=== PATIENT | female | born 1995 | race Caucasian/White ===

== ENCOUNTER → 2018-01-27 17:51 | Outpatient (CLI) | payer BC, SELFPAY | PROVIDERS: Visit Provider Family Medicine | DX: N39.0 Urinary tract infection, site not specified (principal) | CPT/HCPCS: 87086; 87088 ==

== ENCOUNTER → 2020-01-04 16:50 | Outpatient (CLI) | payer BC, SELFPAY ==
[2020-01-04 17:06] LABS: Bacteria 0 SEEN /hpf (None Seen); Mucous, Urine 0 SEEN /hpf (<or=2+); White Blood Cells 0 SEEN /hpf (0-5)
[2020-01-04 18:11] LABS: ALB/GLOB Ratio 1.3 RATIO (0.9-2.4); AST(SGOT) 18 U/L (15-37); Alanine Aminotransfer ALT/SGPT 25 U/L (13-56); Albumin, Serum 4.4 g/dL (3.2-5.0); Alkaline Phosphatase 47 U/L (45-117); Anion Gap 7 (5-15); BUN 13 mg/dL (7-18); BUN/Creat Ratio 18.7 RATIO (10-20); Calcium,Total 9.3 mg/dL (8.5-10.1); Chloride 101 mmol/L (98-107); EST Glomerular Filtration Rate 110 mL/min (>60); Est Glom Filt Rate - Afr Amer 133 mL/min (>60); Globulin 3.5 g/dL (2.2-4.2); Glucose 86 mg/dL (74-106); Potassium 3.6 mmol/L (3.5-5.1); Protein, Total 7.9 g/dL (6.4-8.2); Sodium Level 137 mmol/L (136-145)
[2020-01-04 18:32] LABS: Color, Urine Yellow (Yellow); Glucose, Dipstick Normal (Normal); Ketone-Dipstick Negative (Negative); Leukocyte Esterase-Dipstick Negative /ul (Negative); Nitrite-Dipstick Negative (Negative); Occult Blood-Urine 10 /ul (Negative); Protein-Dipstick Negative (Negative); Urine Bilirubin Dipstick Negative (Negative); Urine Clarity Sl. Cloudy (Clear); Urine Urobilinogen Normal (Normal); Urine pH 6.5 (5.0 - 8.0)
[2020-01-04 18:40] LABS: Red Blood Cells-Urine 0-5 SEEN /hpf (0-5); Squamous Epithelial Cells - UA 0-5 SEEN /hpf (5-10)
[2020-01-04 18:56] LABS: Hemoglobin A1c 5.2 % (4.2-6.3)
== END ==
PROVIDERS: PCP Family Medicine; Referring Provider Family Medicine; Visit Provider Family Medicine
DX: R63.1 Polydipsia (principal)
CPT/HCPCS: 36415; 80053; 81001; 83036

== ENCOUNTER → 2020-05-10 15:19 | Outpatient (CLI) | payer BC, SELFPAY ==
--- NOTE | 2020-05-10 15:26 | CT_ITS ---
STUDY: CT BRAIN WITHOUT CONTRAST REASON FOR EXAM: Female, 25 years old. PT STATED HEAD INJURY X 4 DAYS AGO, HEADACHE SINCE, REFUSED TO REMOVE JEWELRY RADIATION DOSAGE (If Supplied By Facility): CTDIvol = ( 44.99 ) mGy, DLP = ( 745.49 ) mGycm TECHNIQUE: Transaxial CT imaging of the brain was performed without administration of intravenous contrast material. Individualized dose optimization techniques were used for this CT. COMPARISON: No relevant priors. FINDINGS: Normal soft tissue structures. Normal calvarium. Normal size ventricles and extra-axial spaces for the patient''s age. Normal white matter tracts of the cerebral hemispheres. Normal basal ganglia and thalami. Normal brainstem. Normal cerebellum. There is no intracranial hemorrhage. There are no findings of an acute ischemic infarction. Normal visualized paranasal sinuses. CT/Brain/Head without Contrast IMPRESSION: Normal unenhanced CT scan of the brain. Electronically Signed: Brian Hernandez MD at 16:08 EDT Tel , Service support ,
--- NOTE | 2020-05-10 15:27 | CT_ITS ---
STUDY: CT CERVICAL SPINE WITHOUT CONTRAST REASON FOR EXAM: Female, 25 years old. PT STATED HEAD INJURY X 4 DAYS AGO, HEADACHE SINCE, REFUSED TO REMOVE JEWELRY RADIATION DOSAGE (If Supplied By Facility): CTDIvol = ( 23.15 ) mGy, DLP = ( 565.15 ) mGycm TECHNIQUE: High resolution transaxial imaging was performed without contrast material. Sagittal and coronal images were reconstructed. Individualized dose optimization techniques were used for this CT. COMPARISON: None FINDINGS: Normal craniovertebral junction. Normal anterior atlantoaxial articulation. Normal odontoid process. There is straightening of the normal cervical lordosis. Normal vertebral bodies and posterior osseous elements. C2-3: Normal endplates. Normal disc height and morphology. Normal central canal and intervertebral neuroforamina. C3-4: Normal endplates. Normal disc height and morphology. Normal central canal and intervertebral neuroforamina. C4-5: Normal endplates. Normal disc height and morphology. Normal central canal and intervertebral neuroforamina. C5-6: Normal endplates. Normal disc height and morphology. Normal central canal and intervertebral neuroforamina. C6-7: Normal endplates. Normal disc height and morphology. Normal central canal and intervertebral neuroforamina. C7-T1: Normal endplates. Normal disc height and morphology. Normal central canal and intervertebral neuroforamina. Normal visualized soft tissue structures. CT/Spine Cervical without Contras IMPRESSION: No fracture or subluxation. Straightening of the normal lordotic curvature possibly from muscular spasm. Electronically Signed: Brian Hernandez MD at 16:07 EDT Tel , Service support ,
== END ==
PROVIDERS: PCP Family Medicine; Referring Provider Family Medicine; Visit Provider Family Medicine
DX: S09.90XA Unspecified injury of head, initial encounter (principal)
CPT/HCPCS: 70450; 72125

== ENCOUNTER → 2020-07-06 16:12 | Outpatient (CLI) | payer BC, SELFPAY ==
[2017-08-29 20:15] VITALS: BMI 26.6
[2020-07-11 14:09] LABS: Chlamydia By Nucleic Acid AMP Negative (Negative)
[2020-07-11 15:00] LABS: Gonococcus By Nucleic Acid AMP Negative (Negative); HPV Reflexed? NOT INDICATED
== END ==
PROVIDERS: PCP Family Medicine; Referring Provider Family Medicine; Visit Provider Family Medicine
DX: Z01.419 Encounter for gynecological examination (general) (routine) without abnormal findings (principal)
CPT/HCPCS: 87491; 87591; 88175; G0145

== ENCOUNTER → 2021-04-24 16:48 | Outpatient (CLI) | payer BC, SELFPAY ==
[2021-04-24 17:47] LABS: Absolute Lymphocyte Count 3.13 X10^3/uL (0.83-4.51); Absolute Neutrophil Count 4.2 X10^3/uL (2.0-7.7); Basophil# 0.03 X10^3/uL; Basophil% 0.4 % (0-1); Eosinophil# 0.04 X10^3/uL; Eosinophils% 0.5 % (0-5); Hematocrit 38.3 % (37-47); Hemoglobin 12.5 g/dL (12.0-15.0); Lymphocyte # 3.13 X10^3/ul (0.83-4.51); Lymphocyte % 38.4 % (19-41); Mean Corp Hgb Conc 32.6 g/dL (32-36); Mean Corpuscular Volume 91.8 fL (81-99); Mean Platelet Vol. 9.9 fl (6.2-12.0); Monocyte# 0.71 X10^3/uL; Monocyte% 8.7 % (0-10); NRBC Flagged by Analyzer 0 % (0-5); Neutrophil # 4.22 X10^3/uL (2.7-7.7); Neutrophil % 51.6 % (47-70); Platelet Count 309 K/mm3 (150-450); RBC Distribution Width CV 12.2 % (11.6-14.6); RBC Distribution Width SD 41.1 fl (35.1-43.9); Red Blood Count 4.17 M/mm3 (4.2-5.4); White Blood Count 8.2 K/mm3 (4.4-11.0)
[2021-04-24 18:16] LABS: AST(SGOT) 18 U/L (15-37); Alanine Aminotransfer ALT/SGPT 27 U/L (13-56); Albumin, Serum 3.8 g/dL (3.2-5.0); Alkaline Phosphatase 28 U/L (45-117); Anion Gap 6 (5-15); BUN 14 mg/dL (7-18); BUN/Creat Ratio 17.8 RATIO (10-20); Calcium,Total 9.6 mg/dL (8.5-10.1); Chloride 104 mmol/L (98-107); Creatinine, Serum 0.79 mg/dL (0.55-1.02); EST Glomerular Filtration Rate 95 mL/min (>60); Est Glom Filt Rate - Afr Amer 115 mL/min (>60); Globulin 3.9 g/dL (2.2-4.2); Glucose 87 mg/dL (74-106); Potassium 3.6 mmol/L (3.5-5.1); Protein, Total 7.7 g/dL (6.4-8.2); Sodium Level 138 mmol/L (136-145)
== END ==
PROVIDERS: PCP Family Medicine; Referring Provider Family Medicine; Visit Provider Family Medicine
DX: R10.11 Right upper quadrant pain (principal)
CPT/HCPCS: 36415; 80053; 85025

== ENCOUNTER → 2021-04-25 09:26 | Outpatient (CLI) | payer BC, SELFPAY ==
--- NOTE | 2021-04-25 09:30 | US_ITS ---
STUDY: ABDOMINAL ULTRASOUND - RIGHT UPPER QUADRANT REASON FOR VISIT: Female, 26 years old RUQ PAIN TECHNIQUE: Ultrasound evaluation of the right upper quadrant was performed with real-time and static macdonald-scale imaging. TECHNICAL QUALITY: Adequate. COMPARISON: None. FINDINGS: Liver: The liver is slightly enlarged and measures 18.3 cm. There is normal echogenicity of the liver. The bile ducts are within normal limits. There is hepatic color flow. The direction of portal flow is hepatopetal. There is a 1.8 cm x 1.6 cm x 1.6 cm echogenic nodule in the right lobe suggestive of a small hemangioma. This is adjacent to the right hemidiaphragm. Gallbladder: Normal distended gallbladder. The gallbladder wall measures 1.5 mm. There is a negative sonographic Pabon''s sign. There is no pericholecystic fluid. There are no gallstones. Sludge is seen in the gallbladder lumen. Common Bile Duct (C.B.D.): The common bile duct measures 2.7 mm. Pancreas: Normal size of the head, body and tail of the pancreas. There is increased echogenicity of the pancreas. There is no demonstrated pancreatic mass or cyst. Right Kidney: Normal size of the right kidney. The right kidney measures 10.5 cm x 5.5 cm x 4.6 cm. Normal renal cortex. The right cortex measures 1.2 cm. There is no demonstrated renal mass or cyst. There is no right hydronephrosis. US/Gallbladder IMPRESSION: Mild hepatomegaly. Findings suggest right 1.8 cm x 1.6 cm x 1.6 cm hemangioma in the dome of the right lobe of the liver. Small amount of sludge is seen in the gallbladder lumen. Electronically Signed: Twin Riggs MD at 10:48 EDT , Service support ,
== END ==
PROVIDERS: PCP Family Medicine; Referring Provider Family Medicine; Visit Provider Family Medicine
DX: R10.11 Right upper quadrant pain (principal)
CPT/HCPCS: 76705

== ENCOUNTER → 2021-05-08 09:19 | Outpatient (CLI) | payer BC, SELFPAY ==
--- NOTE | 2021-05-08 09:22 | NM_ITS ---
CLINICAL: 26-year-old female with reported history of right upper quadrant abdominal pain. RADIONUCLIDE HEPATOBILIARY SCINTIGRAPHY COMPARISON: Gallbladder ultrasound report 04/25/2021 FINDINGS: Following the intravenous administration of 5.5 mCi of 99m Tc Mebrofenin, hepatobiliary images reveal: 1. Relatively prompt and homogeneous radiopharmaceutical concentration is noted by a normal sized liver. No parenchymal defects are identified. 2. Gallbladder activity is identified at 10 minutes post radiopharmaceutical administration. 3. Small intestinal tract is not visualized during 60 minutes of pre-fatty meal sequential image acquisition. Small bowel is observed following consumption of the fatty meal. 4. Washout of the radiopharmaceutical by the hepatic parenchyma appears qualitatively normal. The patient was administered a fatty meal (8 ounces BOOST-30 grams fat). The post fatty meal consumption gallbladder ejection fraction calculated at 19 minutes was noted to be 51.0 % (normal greater than 30%). NM/Hepatobilliary Img w/Pharm Int IMPRESSION: 1. NORMAL 99m Tc Mebrofenin hepatobiliary imaging examination with fatty meal ingestion. A. A gallbladder ejection fraction calculated to be greater than 30% following the administration of a consumed fatty meal makes the probability of functional hepatobiliary disease (gallbladder and/or sphincter of Oddi dyskinesia) and/or organic hepatobiliary disease (chronic acalculous cholecystitis and/or cystic duct syndrome) to be low. (Zbigniew and Farrukh, J Nucl Med 43: 1603, 2002). Electronically Signed: Brian Whyte DO at 22:52 EDT Tel , Service support ,
== END ==
PROVIDERS: PCP Family Medicine; Referring Provider Family Medicine; Visit Provider Family Medicine
DX: K82.8 Other specified diseases of gallbladder (principal)
CPT/HCPCS: 78227; A9537

== ENCOUNTER → 2021-05-16 08:47 | Outpatient (CLI) | payer BC, SELFPAY ==
[2021-05-16 09:02] LABS: Bacteria 0 SEEN /hpf (None Seen); Mucous, Urine 0 SEEN /hpf (<or=2+)
[2021-05-16 09:05] LABS: Color, Urine Yellow (Yellow); Glucose, Dipstick Normal (Normal); Ketone-Dipstick Negative (Negative); Leukocyte Esterase-Dipstick 500 /ul (Negative); Nitrite-Dipstick Negative (Negative); Occult Blood-Urine 50 /ul (Negative); Protein-Dipstick Negative (Negative); Urine Bilirubin Dipstick Negative (Negative); Urine Clarity Sl. Cloudy (Clear); Urine Urobilinogen Normal (Normal); Urine pH 6.5 (5.0 - 8.0)
[2021-05-16 09:15] LABS: Red Blood Cells-Urine 0-5 SEEN /hpf (0-5); Squamous Epithelial Cells - UA 0-5 SEEN /hpf (5-10); White Blood Cells 25-50 SEEN /hpf (0-5)
== END ==
PROVIDERS: PCP Family Medicine; Referring Provider Surgery; Visit Provider Surgery
DX: R10.9 Unspecified abdominal pain (principal); R82.90 Unspecified abnormal findings in urine
CPT/HCPCS: 81001; 87086

== ENCOUNTER 2021-05-24 08:17 | Day surgery (SDC) | payer BC, SELFPAY ==
--- NOTE | 2021-05-24 | EGD_PTH ---
PATIENT: AHSAN CODY LOC: EN U#:[id number] AGE/SX: 26/F ROOM: RE05/24/[address]: Dr. Joel Campos MD : 1995 BED: DIS: 05/24/2021 SPEC #: [id number] RECD: 05/24/21 13:07 STATUS: SHAKIRA MALCOLM #: [id number] MICKY: 05/24/21 00:[address]: Joel Campos DEPT: SURGICAL PATHOLOGY RECD BY: Clark Ghotra ENTERED: 05/24/21 13:07 SP TYPE: EGD BIOPSY OT DR: Dr. Sanjiv Hernandez MD Tissues: A - Duodenum, NOS B - Gastric mucous membrane C - Esophageal mucous membrane D - Esophageal mucous membrane Procedures: Special Stain Group II Surgery Specimen Level IV Alcian Blue/PAS (control) HEADER OPERATION: EGD ([facility] [place]) PRE-OP DIAGNOSIS: Epigastric abdominal pain TISSUE SUBMITTED: A ? Duodenum biopsy, B ? Antrum biopsy for histo and H. pylori, C ? Distal esophagus biopsy, D ? Mid esophagus biopsy MICROSCOPIC DIAGNOSIS A. Duodenum, biopsy: A fragment of duodenal mucosa, no pathologic diagnosis. B. Antrum, biopsy: Mild gastritis. Focal intestinal metaplasia. See microscopic description and comment. C. Distal esophagus, biopsy: Fragments of gastroesophageal mucosa with mild chronic inflammation. Intestinal metaplasia (goblet cell metaplasia) not identified. See comment. D. Mid esophagus, biopsy: A fragment of squamous epithelium, no pathologic diagnosis. SJ:jordan 05/27/2021 COMMENT B. The results of immunohistochemistry for Helicobacter pylori will be reported separately ([id number]). B & C. Alcian blue/PAS stain with matched control is used in the evaluation of the specimen. MICROSCOPIC DESCRIPTION Slides are reviewed. B. The specimen shows fragments of gastric mucosa with chronic inflammatory cell infiltrates in the lamina propria consisting of lymphocytes and plasma cells, consistent with mild chronic gastritis. Intestinal metaplasia is also noted. GROSS DESCRIPTION A - Received in fixative is one container labeled with the patient's name and designated duodenum biopsy. The specimen consists of one irregular fragment of light simpson soft tissue that measures 0.4 x 0.3 x 0.1 cm. The specimen is totally submitted in one cassette. B - Received in fixative is one container labeled with the patient's name and designated antrum biopsy. The specimen consists of one irregular fragment of light simpson soft tissue that measures 0.3 x 0.3 x 0.1 cm. The specimen is totally submitted in one cassette. C - Received in fixative is one container labeled with the patient's name and designated distal esophagus biopsy. The specimen consists of two irregular fragments of light simpson soft tissue that in aggregate measure 0.6 x 0.3 x 0.1 cm. The specimen is totally submitted in one cassette. D - Received in fixative is one container labeled with the patient's name and designated mid esophagus biopsy. The specimen consists of one irregular fragment of light simpson soft tissue that measures 0.5 x 0.2 x 0.1 cm. The specimen is totally submitted in one cassette. / SJ:rg 05/24/21 TC:3 CPT: 46195 x4, 32640 x2
[2021-05-24 08:45] VITALS: BP 117/72; PULSE 65; RESP 18; TEMP 35.9; O2SAT 100; BMI 28.1
[2021-05-24] MEDS: Lactated Ringers 1,000 ML 100 ML IV (08:45)
[2021-05-24 08:48] LABS: Internal QC Validated? YES +Cl - CLEAR BKGD; Pregnancy, Urine Negative Negative
--- NOTE | 2021-05-24 09:08 | HP.PCM_ITS ---
History and Physical Date of Admission: 05/24/21 Intake Visit Reasons: GALLBLADDER, RUQ PAIN Chief Complaint: ruq pain Clerk Carrier Required: No Is patient in pain?: Yes (ruq) Allergies No Known Allergies Allergy (Verified 05/16/21 08:33) Medications norethindrone-ethin estradiol [Nortrel 1-35 28 Tablet] 1 tab PO DAILY 08/29/17 [History Confirmed 05/16/21] spironolactone [Aldactone] 100 mg PO DAILY 08/29/17 [History Confirmed 05/16/21] ondansetron HCl 4 mg tablet tablet PO 05/16/21 [History Confirmed 05/16/21] propranolol 80 mg capsule,24 hr,extended release ea PO 05/16/21 [History Confirmed 05/16/21] rimegepant 75 mg disintegrating tablet tablet PO 05/16/21 [History Confirmed 05/16/21] PFSH Medical History (Updated 05/16/21 @ 09:[address] Joel Campos MD) Abdominal pain Migraine Surgical History (Updated 05/16/21 @ 08:31 by Fartun Ramirez) S/P wisdom tooth extraction Social History Smoking Status: Never smoker HPI HPI HPI: AHSAN MARKS, is a 26 F who presents to the office today for surgical consultation regarding abdominal pain. The patient is referred by Dr Sanjiv Hernandez a written copy of my surgical consult and recommendations will return to him. As of April 24, 2021 she had a white blood cell count of 8.2 with hemoglobin 12.5 hematocrit 38.3 and a platelet count of 309,000. Liver function test at that time were normal. On April 25, 2021 she had a gallbladder ultrasound showing mild hepatomegaly. I suspected 1.8 x 1.6 x 1.6 cm hemangioma in the dome of the right lobe of the liver. Small amount of sludge in the gallbladder. Subsequently on May 08, 2021 the patient had a hepatobiliary scan. This showed prompt filling by the liver. Gallbladder was identified at 10 minutes. The small intestine was not visualized during the 60-minute prefatty meal. The small bowel was visualized after the fatty meal. Ejection fraction of the gallbladder was 51% felt to be normal. By report the patient's been having trouble with migraines. She has been on various medications. For the past 4 to 6 weeks she has been having trouble with epigastric right upper quadrant pain and now right flank pain. She denies any history of shingles. She has had no rash. She has not had a recent urinalysis. Does not really describe any dysuria. As of April 24, 2021 laboratory demonstrated normal liver function tests. She also had a normal white blood cell count of 8.2 with hemoglobin 12.5 hematocrit 38.3 and a platelet count of 309,000. She states that she took a home allergy test that suggested age intolerance and moderate wheat intolerance and mild gluten insufficiency. She has been on a course of omeprazole therapy. The first week she did noted no difference. The subsequent couple weeks some improvement. She states that the discomfort is most notable first thing in the morning with an empty stomach. With some of her migraine medication changes she had a 10 pound weight loss. She has possibly had an additional 5 pound weight loss. She notes no change in bowel habit. ROS General General: Yes weight change, appetite and fatigue; No colon cancer, breast cancer or weakness HEENT HEENT: No difficulty swallowing, eye injury, eye surgery, swollen glands or hoarseness Endo Endocrine: No thyroid disease, diabetes mellitus, thyroid cancer, Hair loss, heat intolerance or cold intolerance Skin Skin: No rash or changing moles Breast Breast: No left breast lump, right breast lump, nipple discharge, breast pain, abnormal mammogram, abnormal US or breast enlargement Musc Musculoskeletal: No back problems, arthritis, rheumatoid arthritis, gout or joint pain Cardio Cardiovascular: No murmur, pacemaker, heart disease, atrial fibrillation, high blood pressure, heart attack, heart stent, palpitations, shortness of breat with exertion or chest pain Psych Psychiatric: Yes anxiety; No depression or hearing voices Resp Respiratory: No shortness of breath, No sleep apnea, No cough, No COPD, No asthma, No emphysema and No wheezing Gastro Gastrointestinal: Yes abdominal pain, No nausea or vomiting, Yes diarrhea, Yes constipation, No blood in stool, Yes acid reflux, No hemorrhoids, No ulcers, Yes gallbladder problem and No black,tarry stools Ramy Hematologic: No blood thinners, No blood disorders, No bleeding, No anemia and No blood clots Neuro Neurologic: No system reviewed and no additional complaints, except as documented, No as per HPI, No abnormal gait, No abnormal hearing, No abnormal movements, No abnormal speech, No behavioral changes, No burning sensations, No confusion, No convulsions, No disequilibrium, No dizziness, No localized weakness, No frequent falls, Yes headache(s), No lack of coordination, No loss of vision, No memory loss, No numbness, No other visual disturbances, No radicular pain, No restless legs, No sensory deficit, No syncope, No tingling, No tremor(s), No weakness and No other Exam Const General: cooperative, healthy appearing, comfortable and no acute distress Nutritional Appearance: average body habitus Orientation: alert and awake [facility] Head: normal to inspection Eyes General: appearance normal, both eyes and all related structures Neck Neck: normal visual inspection Chest Other: No significant CVA percussion tenderness Resp Effort & Inspection: normal respiratory effort Auscultation: clear to auscultation bilaterally Cardio Rate: regular rate Rhythm: regular rhythm GI Palpation: soft and no hepatosplenomegaly Auscultation: normal bowel sounds Other: No focal tenderness. No mass. No rebound. Musc Cervical Spine: normal cervical lordosis Skin Other: Back and right flank carefully inspected. No evidence for any rash. Neuro General: patient alert and patient awake Cognition: normal cognition Extrem General: no calf tenderness Psych Appearance: grossly normal COVID (Procedure Consent) Procedure Criteria Procedure Criteria: Yes Elective The surgeon/proceduralist and patient have discussed in detail the risk of exposure to and/or potential harm posed by the COVID-19 virus with having a surgery/procedure at this time versus the risk of delaying the surgery/procedure. It is not possible to know either the risk of delaying the surgery or procedure or chance of getting an infection with perfect accuracy, but a joint decision was made between the patient and the surgeon/proceduralist to proceed at this time with the scheduled surgery/procedure as indicated on the consent form. Assessment and Plan Assessment and Plan (1) Epigastric abdominal pain: Status: Acute Plan - Dr. Joel Campos MD: 26-year-old female with epigastric right upper quadrant right flank pain. Etiology not clear. Gallbladder evaluation with liver function tests and ultrasound and hepatobiliary scan unremarkable. I recommend a urinalysis. She is describing some right flank discomfort. I recommend a esophagogastroduodenoscopy with possible biopsy. Very careful inspection of the duodenum stomach and esophagus pursued with appropriate biopsies as noted. She has had an opportunity to ask and have questions answered. If the upper endoscopy is not remarkable then I am not sure I will have a surgical resolution to her problem. The patient and her mother have had an opportunity to ask and have questions answered. I appreciate the opportunity of assisting with her surgical care Copy: Dr Sanjiv Campos M.D., F.A.C.S. Plan Details Other Orders: Orders: Urinalysis, Complete Today R10.9 I have re-examined the patient. There are no clinical changes since date of exam. Joel Campos M.D., F.A.C.S.
--- NOTE | 2021-05-24 09:30 | IMM_PTH ---
PATIENT: AHSAN CODY LOC: EN U#:[id number] AGE/SX: 26/F ROOM: RE05/24/[address]: Dr. Joel Campos MD : 1995 BED: DIS: 05/24/2021 SPEC #: [id number] RECD: 05/24/21 13:45 STATUS: SHAKIRA REChato #: [id number] MICKY: 05/24/21 09:[address]: Joel Campos DEPT: IMMUNOHISTOCHEMISTRY RECD BY: Sherice Kothari ENTERED: 05/24/21 13:45 SP TYPE: IMMUNO OTHR DR: Dr. Sanjiv Hernandez MD Tissues: B - Stomach, NOS Procedures: H Pylori (initial) PHYSICIAN & INSTITUTION [place] [address] SPECIMEN INFORMATION: Tissue Source: B ? Antrum biopsy Clinical Info: Epigastric abdominal pain Specimen Number: [id number] CPT code: 60523 METHODOLOGY: Deparaffinized sections of prefer/formalin-fixed tissue or PAP/DQ stained slides are incubated with monoclonal/polyclonal antibodies/oligonucleotide probes. Localization is made via biotin free immunoperoxidase method. Appropriate controls are performed and reacted as expected. Results on target cell population are indicated in the following table: RESULTS: ANTIBODY / CLONE RESULT Block B H Pylori (polyclonal) negative These tests were developed and their performance characteristics determined by [facility]. They may not have been cleared or approved by the U.S. Food and Drug Administration. The FDA has determined that such clearance or approval is not necessary. INTERPRETATION: B. Antrum biopsy: Negative for Helicobacter pylori organisms. SJ:jordan 05/27/2021
--- NOTE | 2021-05-24 10:17 | OP.EGD_ITS ---
Patient Name: Mihaela Katz Procedure Date: 05/24/2021 9:58 AM Date of : 1995 Age: 26 Procedure: Upper GI endoscopy Indications: Epigastric abdominal pain Providers: Joel Campos MD Referring MD: Joel Campos MD Medicines: See the Anesthesia note for documentation of the administered medications Complications: No immediate complications. Procedure: Pre-Anesthesia Assessment: - Prior to the procedure, a History and Physical was performed, and patient medications and allergies were reviewed. The patient's tolerance of previous anesthesia was also reviewed. The risks and benefits of the procedure and the sedation options and risks were discussed with the patient. All questions were answered, and informed consent was obtained. Prior Anticoagulants: The patient has taken no previous anticoagulant or antiplatelet agents. ASA Grade Assessment: I - A normal, healthy patient. After reviewing the risks and benefits, the patient was deemed in satisfactory condition to undergo the procedure. After obtaining informed consent, the endoscope was passed under direct vision. Throughout the procedure, the patient's blood pressure, pulse, and oxygen saturations were monitored continuously. The gastroscope was introduced through the mouth, and advanced to the second part of duodenum. The upper GI endoscopy was accomplished without difficulty. The patient tolerated the procedure well. Scope In: 10:04:18 AM Scope Out: 10:10:12 AM Total Procedure Duration Time 0 hours 5 minutes 54 seconds Findings: LA Grade A (one or more mucosal breaks less than 5 mm, not extending between tops of 2 mucosal folds) esophagitis with no bleeding was found 40 cm from the incisors. Biopsies were taken with a cold forceps for histology. The middle third of the esophagus was normal. Biopsies were taken with a cold forceps for histology. A single localized, non-bleeding erosion was found in the gastric antrum. There were no stigmata of recent bleeding. Biopsies were taken with a cold forceps for histology. The examined duodenum was normal. Biopsies were taken with a cold forceps for histology. A small hiatal hernia was present. The Z-line was irregular and was found 40 cm from the incisors. Impression: - LA Grade A reflux esophagitis. Biopsied. - Normal middle third of esophagus. Biopsied. - Non-bleeding erosive gastropathy. Biopsied. - Normal examined duodenum. Biopsied. Recommendation: - Discharge patient to home. - Resume previous diet. - Continue present medications. - Telephone my office for pathology results in 1 week. Procedure Code(s): --- Professional --- 62814, Esophagogastroduodenoscopy, flexible, transoral; with biopsy, single or multiple Diagnosis Code(s): --- Professional --- K21.0, Gastro-esophageal reflux disease with esophagitis K31.89, Other diseases of stomach and duodenum R10.13, Epigastric pain CPT copyright 2017 [employer]. All rights reserved. The codes documented in this report are preliminary and upon him assistant review may be revised to meet current compliance requirements. Joel Campos MD 05/24/2021 10:16:17 AM This report has been signed electronically. Number of Addenda: 0 Note Initiated On: 05/24/2021 9:58 AM
--- NOTE | 2021-05-24 10:17 | OP.CCLET_ITS ---
05/24/2021 Sanjiv Hernandez [address] [place] [address] Re : Upper GI endoscopy procedure for Mihaela Katz Dear Dr. Hernandez This procedure was performed on Monday, May 24, 2021. My impressions and recommendations are as follows: Impressions : - LA Grade A reflux esophagitis. Biopsied. - Normal middle third of esophagus. Biopsied. - Non-bleeding erosive gastropathy. Biopsied. - Normal examined duodenum. Biopsied. Recommendations : - Discharge patient to home. - Resume previous diet. - Continue present medications. - Telephone my office for pathology results in 1 week. My findings are described in the full procedure note, which is enclosed. If I can be of further assistance, please feel free to contact me at Doctor phone number(s): Work: . Sincerely, Joel Campos MD 05/24/2021 10:16:17 AM This report has been signed electronically.
[2021-05-24 10:20] VITALS: BP 110/75; BP 117/72; PULSE 65; RESP 16; O2SAT 100
[2021-05-24 10:21] VITALS: BP 115/55; BP 117/72; PULSE 67; RESP 16; TEMP 36.2; O2SAT 100
[2021-05-24 10:25] VITALS: BP 109/78; BP 117/72; PULSE 69; RESP 16; O2SAT 100
[2021-05-24 10:32] VITALS: BP 113/71; BP 117/72; PULSE 62; RESP 16; TEMP 36.2; O2SAT 100
[2021-05-24 10:56] VITALS: BP 117/72
== END 2021-05-24 11:03 ==
LOC: EN 08:17 → AC 08:18
PROVIDERS: Anesthesiology; PCP Family Medicine; Referring Provider Surgery; Visit Provider Surgery
PROC: 0DJ08ZZ Inspection of Upper Intestinal Tract, Via Natural or Artificial Opening Endoscopic (ICD-10-PCS; CPT 43235; principal; 2021-05-24 09:25)
DX: K29.70 Gastritis, unspecified, without bleeding (principal); K44.9 Diaphragmatic hernia without obstruction or gangrene; K22.70 Barrett's esophagus without dysplasia; K21.00 Gastro-esophageal reflux disease with esophagitis, without bleeding; K31.89 Other diseases of stomach and duodenum; R63.4 Abnormal weight loss; G43.909 Migraine, unspecified, not intractable, without status migrainosus; F41.9 Anxiety disorder, unspecified; Z68.28 Body mass index [BMI] 28.0-28.9, adult; Z79.899 Other long term (current) drug therapy
CPT/HCPCS: 43239; 81025; 87426; 88305; 88313; 88342; C9803; J7120

== ENCOUNTER → 2022-01-14 | Outpatient (CLI) | payer BC, SELFPAY ==
[2022-01-14 15:21] LABS: Absolute Lymphocyte Count 3.49 X10^3/uL (0.83-4.51); Absolute Neutrophil Count 3.5 X10^3/uL (2.0-7.7); Basophil# 0.03 X10^3/uL; Basophil% 0.4 % (0-1); Eosinophil# 0.05 X10^3/uL; Eosinophils% 0.6 % (0-5); Hematocrit 37.8 % (37-47); Hemoglobin 12.6 g/dL (12.0-15.0); Lymphocyte # 3.49 X10^3/ul (0.83-4.51); Lymphocyte % 44.4 % (19-41); Mean Corp Hgb Conc 33.3 g/dL (32-36); Mean Corpuscular Hgb 29.8 pg (27.0-32.0); Mean Corpuscular Volume 89.4 fL (81-99); Mean Platelet Vol. 9.2 fl (6.2-12.0); Monocyte# 0.73 X10^3/uL; Monocyte% 9.3 % (0-10); NRBC Flagged by Analyzer 0 % (0-5); Neutrophil # 3.52 X10^3/uL (2.7-7.7); Neutrophil % 44.8 % (47-70); Platelet Count 356 K/mm3 (150-450); RBC Distribution Width CV 12.1 % (11.6-14.6); RBC Distribution Width SD 39.5 fl (35.1-43.9); Red Blood Count 4.23 M/mm3 (4.2-5.4); White Blood Count 7.9 K/mm3 (4.4-11.0)
[2022-01-14 16:18] LABS: Vitamin B12 1299 pg/mL (211-911); Vitamin D,25 Hydroxy 27.2 ng/mL
[2022-01-14 16:27] LABS: ALB/GLOB Ratio 1.2 RATIO (0.9-2.4); AST(SGOT) 23 U/L (15-37); Alanine Aminotransfer ALT/SGPT 37 U/L (13-56); Albumin, Serum 4.3 g/dL (3.2-5.0); Alkaline Phosphatase 46 U/L (45-117); Anion Gap 6 (5-15); BUN 14 mg/dL (7-18); BUN/Creat Ratio 16.7 RATIO (10-20); Calcium,Total 9.3 mg/dL (8.5-10.1); Chloride 102 mmol/L (98-107); Creatinine, Serum 0.84 mg/dL (0.55-1.02); EST Glomerular Filtration Rate 87 mL/min (>60); Est Glom Filt Rate - Afr Amer 106 mL/min (>60); Globulin 3.6 g/dL (2.2-4.2); Glucose 81 mg/dL (74-106); Potassium 3.8 mmol/L (3.5-5.1); Protein, Total 7.9 g/dL (6.4-8.2); Sodium Level 138 mmol/L (136-145); T4 Free Direct 0.92 ng/dL (0.76-1.46); Thyroid Stim Hormone (TSH) 1.89 uIU/mL (0.358-3.74)
== END | disposition home or self-care (01) ==
LOC: MFPLAB 14:19
PROVIDERS: PCP Family Medicine; Visit Provider Family Medicine
DX: Z01.419 Encounter for gynecological examination (general) (routine) without abnormal findings (principal); R53.83 Other fatigue; R68.89 Other general symptoms and signs
CPT/HCPCS: 36415; 80053; 82306; 82607; 84439; 84443; 85025

== ENCOUNTER → 2022-02-11 | Outpatient (CLI) | payer BC, SELFPAY | END | disposition home or self-care (01) | LOC: LABSPEC 12:08 | PROVIDERS: PCP Family Medicine; Referring Provider Family Medicine; Visit Provider Nurse Practitioner Family | DX: N39.0 Urinary tract infection, site not specified (principal) | CPT/HCPCS: 87086 ==

== ENCOUNTER → 2022-06-13 | Outpatient (CLI) | payer BC, SELFPAY ==
[2022-06-17 14:29] LABS: B. henselae IgG Negative titer (Neg:<1:320); B. henselae IgM Negative titer (Neg:<1:100); B. quintana IgG Negative titer (Neg:<1:320)
[2022-06-17 16:03] LABS: B. quintana IgM Negative titer (Neg:<1:100)
== END | disposition home or self-care (01) ==
LOC: MFPLAB 16:37
PROVIDERS: PCP Family Medicine; Referring Provider Family Medicine; Visit Provider Family Medicine
DX: T14.90XA Injury, unspecified, initial encounter (principal); W55.03XA Scratched by cat, initial encounter
CPT/HCPCS: 36415; 86611

== ENCOUNTER 2022-07-08 19:52 | Emergency (ER) | payer OTHER, SELFPAY ==
[2022-07-08 19:53] VITALS: BP 125/92; PULSE 69; RESP 15; TEMP 36.4; O2SAT 99; BMI 29.1
[2022-07-08 21:17] LABS: Mucous, Urine 0 SEEN /hpf (<or=2+)
[2022-07-08 21:18] LABS: Color, Urine Yellow (Yellow); Glucose, Dipstick Normal (Normal); Ketone-Dipstick Negative (Negative); Leukocyte Esterase-Dipstick Negative /ul (Negative); Nitrite-Dipstick Negative (Negative); Occult Blood-Urine 150 /ul (Negative); Protein-Dipstick Negative (Negative); Specific Gravity, Urine 1.015 (1.002-1.030); Urine Bilirubin Dipstick Negative (Negative); Urine Clarity Clear (Clear); Urine Urobilinogen Normal (Normal); Urine pH 6.5 (5.0 - 8.0)
[2022-07-08 21:24] LABS: Red Blood Cells-Urine 0-5 SEEN /hpf (0-5); Squamous Epithelial Cells - UA 0-5 SEEN /hpf (5-10); White Blood Cells 0-5 SEEN /hpf (0-5)
[2022-07-08 21:25] LABS: Bacteria RARE /hpf (None Seen)
--- NOTE | 2022-07-08 21:32 | ED.VIS.FEGU ---
HPI HPI - Female History of Present Illness Chief Complaint: Vag Bld, Preg Informant: patient Pain Pain: Positive for Pelvic Pain Onset: Days (5) Context: Gradual Onset Timing: Continuous Quality: Positive for Cramping and - (Pressure) Location: Suprapubic Relieved by: Tylenol and - (Heat) Bleeding Issue: Positive for Vaginal bleeding and Passing clots Onset: Days (3) Context: Gradual Onset Timing: Continuous Current Severity: Heavy Maximum Severity: Heavy Vaginal Discharge Quality: Positive for - (Brown) Severity: Light Associated Symptoms Associated Symptoms: Negative for Dysuria, Frequency or Hematuria Narrative Narrative: Patient presents with vaginal bleeding that has been constant for the past 3 days. Patient states she is passing some clots. Patient states it is heavier than her normal period at times. Patient states it is gradually getting worse. Patient admits to some pelvic pain and pressure for the past 5 days. Patient describes it as cramping. Patient states it is over the suprapubic area and just to the right of the midline. Patient states it is relieved with Tylenol and with heating pad and hot shower. Patient states nothing makes it worse. Patient states her last normal menstrual period was 2 weeks ago. Patient also admits to a mild brown vaginal discharge. Patient denies any urinary complaints. [facility] Medical History Abdominal pain Anxiety Back pain Gastric reflux History of steroid therapy Injury of head and neck Migraine Non-smoker Shortness of breath on exertion Wears contact lenses Wears glasses Home Medications norethindrone 1 mg-ethinyl estradiol 35 mcg tablet (Nortrel) 1 tab PO DAILY 08/29/17 [History Last Taken Unknown] spironolactone 100 mg tablet (Aldactone) 50 mg PO DAILY 08/29/17 [History Last Taken Unknown] ondansetron HCl 4 mg tablet 1 tablet PO PRN PRN Nausea 05/16/21 [History Last Taken Unknown] propranolol 80 mg capsule,24 hr,extended release 80 mg PO DAILY migraines 05/16/21 [History Last Taken Unknown] rimegepant 75 mg disintegrating tablet (Nurtec ODT) 75 tablet PO PRN PRN migraines 05/16/21 [History Last Taken Unknown] acetaminophen 325 mg tablet (Tylenol) 650 mg PO Q4H PRN Pain 05/22/21 [History Last Taken Unknown] acetaminophen-caffeine 500 mg-65 mg tablet 2 tab PO Q6H PRN Migraine Headache 05/22/21 [History Last Taken Unknown] dimenhydrinate 50 mg tablet (Dramamine) 50 mg PO Q8H PRN Nausea 05/22/21 [History Last Taken Unknown] galcanezumab-gnlm 120 mg/mL subcutaneous pen injector (Emgality Pen) 120 mg subcut QMONTH 05/22/21 [History Last Taken Unknown] omeprazole 40 mg capsule,delayed release 40 mg PO DAILY #30 caps 05/30/21 [Rx Last Taken Unknown] Allergy/AdvReac Type Severity Reaction Status Date / Time No Known Allergies Allergy Verified 07/08/22 19:58 Surgical History S/P wisdom tooth extraction Social History Smoking Status: Never smoker ROS ROS ED Constitutional Constitutional ED: Denies chills or fever(s) Eyes Eyes: Denies blurry vision or change in vision ENT ENT ED: Reports rhinorrhea; Denies sore throat Cardiovascular Cardiovascular: Denies chest pain or palpitations Respiratory/Chest Respiratory/Chest: Denies cough or dyspnea Gastrointestinal Gastrointestinal: Denies nausea or vomiting Genitourinary Genitourinary ED: Denies dysuria or hematuria Musculoskeletal Musculoskeletal: Reports back pain; Denies neck pain Integumentary Denies abscess or rash Neurologic Neurologic: Reports headache(s); Denies weakness Allergic/Immunologic Allergic/Immunologic ED: Denies mouth swelling or urticaria EXAM Physical Exam Const Vital Signs: 07/08/22 19:53 Temperature 97.6 F L Temperature Source Temporal Pulse Rate 69 Respiratory Rate 15 Blood Pressure 125/92 H Blood Pressure Mean 103 Pulse Ox 99 Oxygen Delivery Method Room Air Positive well nourished and well developed General Appearance ED: well developed HEENT Reports moist mucous membranes Neck supple and no JVD Resp normal respiratory effort and clear to auscultation bilaterally Cardio regular rate, regular rhythm and no murmurs GI normal to inspection, nondistended, normoactive bowel sounds Palpation: soft and tender suprapubic; Negative for guarding Extremity normal to inspection General Extremety ED: Negative for edema or tenderness General Extremity: Negative for edema Neuro oriented x3, CN's II-XII intact bilaterally and no sensory deficits noted Sensorium / Orientation: alert Motor Exam: strength 5/5 throughout Psych mental status grossly normal Skin no rashes or lesions noted MDM MDM MDM Narrative Medical decision making narrative: Patient was given IV fluids. CBC was within normal limits. Basic metabolic profile was within normal limits. Urinalysis does not show any evidence of urinary tract infection or hematuria. Urine hCG was negative. Patient is feeling better on reevaluation. Patient was instructed to continue Tylenol or ibuprofen as needed for any pain or cramping. Patient was given a referral for MEDICARE COORDINATOR. Patient was instructed to follow-up in 3 to 5 days. Patient was instructed on signs and symptoms which should prompt return to the emergency department. Patient understood and was agreeable with the plan. All questions were answered. Lab Data Attestation: I reviewed the patient's lab results. Labs: Laboratory Results - last 24 hr 07/08/22 07/08/22 07/08/22 21:10 22:15 22:15 WBC 9.0 RBC 4.13 L Hgb 12.5 Hct 36.9 L MCV 89.3 MCH 30.3 MCHC 33.9 RDW Std Deviation 40.2 RDW Coeff of Lori 12.4 Plt Count 288 MPV 9.3 Immature Gran % (Auto) 0.200 Neut % (Auto) 39.2 L Lymph % (Auto) 48.5 H [place] % (Auto) 8.1 Eos % (Auto) 3.7 Baso % (Auto) 0.3 Absolute Neuts (auto) 3.5 Absolute Lymphs (auto) 4.35 Nucleated RBC % 0 Sodium 140 Potassium 3.9 Chloride 105 Carbon Dioxide 27.0 Anion Gap 8 BUN 14 Creatinine 0.89 Estim Creat Clear Calc 86.19 Est GFR (MDRD) Af Amer 98 Est GFR (MDRD) Non-Af 81 BUN/Creatinine Ratio 15.7 Glucose 92 Calcium 9.1 Urine Color Yellow Urine Clarity Clear Urine pH 6.5 Ur Specific [place] 1.015 Urine Protein Negative Urine Glucose (UA) Normal Urine Ketones Negative Urine Occult Blood 150 H Urine Nitrite Negative Urine Bilirubin Negative Urine Urobilinogen Normal Ur Leukocyte Esterase Negative Urine RBC 0-5 SEEN Urine WBC 0-5 SEEN Ur Squamous Epith Cells 0-5 SEEN Urine Bacteria RARE Urine Mucus 0 SEEN Urine Test Negative Discharge Plan Triage Chief Complaint: Vag Bld, Preg ED Provider: Antoine Fulton Dx/Rx/DC Orders Clinical Impression: Dysmenorrhea, Pelvic pain Instructions: ED Dysfunctional Uterine Bleeding, ED MENSTRUAL CRAMPING Prescriptions: No Action Nurtec ODT 75 mg tablet,disintegrating 75 tablet PO PRN PRN (Reason: migraines) propranolol 80 mg capsule,extended release 24 hr 80 mg PO DAILY Label Comments: TAKE 1 CAPSULE BY MOUTH AT BEDTIME ondansetron HCl 4 mg tablet 1 tablet PO PRN PRN (Reason: Nausea) spironolactone [Aldactone] 100 MG tablet 50 mg PO DAILY Nortrel (28) 1 EACH tablet 1 tab PO DAILY acetaminophen [Tylenol] 325 mg Tablet 650 mg PO Q4H PRN (Reason: Pain) Excedrin Aspirin Free 500-65 mg Tablet 2 tab PO Q6H PRN (Reason: Migraine Headache) dimenhydrinate [Dramamine] 50 mg Tablet 50 mg PO Q8H PRN (Reason: Nausea) Emgality Pen 120 mg/mL pen injector 120 mg SUBCUT QMONTH omeprazole 40 mg capsule,delayed release(DR/EC) 40 mg PO DAILY Qty: 30 0RF Primary Care Provider: Sanjiv Hernandez Referrals: Sanjiv Hernandez MD [Primary Care Provider] - 3-5 Days Yulia Mccartney DO [Med Staff - Active Staff] - 3-5 Days Disposition Disposition: Home, Self Care
[2022-07-08] MEDS: 0.9% Normal Saline 1,000 ML 1000 ML IV (22:12)
[2022-07-08 22:19] LABS: Absolute Lymphocyte Count 4.35 X10^3/uL (0.83-4.51); Absolute Neutrophil Count 3.5 X10^3/uL (2.0-7.7); Basophil# 0.03 X10^3/uL; Basophil% 0.3 % (0-1); Eosinophil# 0.33 X10^3/uL; Eosinophils% 3.7 % (0-5); Hematocrit 36.9 % (37-47); Hemoglobin 12.5 g/dL (12.0-15.0); Lymphocyte # 4.35 X10^3/ul (0.83-4.51); Lymphocyte % 48.5 % (19-41); Mean Corp Hgb Conc 33.9 g/dL (32-36); Mean Corpuscular Hgb 30.3 pg (27.0-32.0); Mean Corpuscular Volume 89.3 fL (81-99); Mean Platelet Vol. 9.3 fl (6.2-12.0); Monocyte# 0.73 X10^3/uL; Monocyte% 8.1 % (0-10); NRBC Flagged by Analyzer 0 % (0-5); Neutrophil % 39.2 % (47-70); Platelet Count 288 K/mm3 (150-450); RBC Distribution Width CV 12.4 % (11.6-14.6); RBC Distribution Width SD 40.2 fl (35.1-43.9); Red Blood Count 4.13 M/mm3 (4.2-5.4)
[2022-07-08 22:34] LABS: Anion Gap 8 (5-15); BUN 14 mg/dL (7-18); BUN/Creat Ratio 15.7 RATIO (10-20); Calcium,Total 9.1 mg/dL (8.5-10.1); Chloride 105 mmol/L (98-107); Creatinine, Serum 0.89 mg/dL (0.55-1.02); EST Glomerular Filtration Rate 81 mL/min (>60); Est Glom Filt Rate - Afr Amer 98 mL/min (>60); Estimated Creatinine Clearance 86.19 ml/min; Glucose 92 mg/dL (74-106); Potassium 3.9 mmol/L (3.5-5.1); Sodium Level 140 mmol/L (136-145)
[2022-07-08 22:56] LABS: Internal QC Validated? YES +Cl - CLEAR BKGD; Pregnancy, Urine Negative Negative
[2022-07-08 23:27] VITALS: BP 126/87; PULSE 70; RESP 15; O2SAT 100
== END 2022-07-08 23:28 | disposition home or self-care (01) ==
PROVIDERS: Emergency Provider Emergency Medicine; PCP Family Medicine; Visit Provider Emergency Medicine
DX: N94.6 Dysmenorrhea, unspecified (principal); R10.2 Pelvic and perineal pain
CPT/HCPCS: 80048; 81001; 81025; 85025; 96360; 99283; J7030

== ENCOUNTER → 2022-07-18 | Outpatient (CLI) | payer OTHER, SELFPAY ==
[2022-07-18 18:22] LABS: Internal QC Validated? YES +Cl - CLEAR BKGD; Pregnancy, Serum, hCG Quali. NEGATIVE Negative
== END | disposition home or self-care (01) ==
PROVIDERS: PCP Family Medicine; Referring Provider Family Medicine; Visit Provider Family Medicine
DX: N92.6 Irregular menstruation, unspecified (principal)
CPT/HCPCS: 36415; 84703

== ENCOUNTER → 2022-07-25 | Outpatient (CLI) | payer OTHER, SELFPAY ==
--- NOTE | 2022-07-25 16:18 | US_ITS ---
STUDY: ULTRASOUND OF THE FEMALE PELVIS - COMPLETE REASON FOR EXAM: Female, 27 years old. RT PELVIC PAIN LMP: TECHNIQUE: Abdominal and transvaginal TECHNICAL QUALITY: Adequate. COMPARISON: None. FINDINGS: The uterus is anteverted and is in a midline position. The uterus measures 9.2 x 4.5 x 3.7 cm. Normal uterine cervix. The endometrium measures 4 mm in thickness, and is hyperechoic. There is no demonstrated endometrial mass. There is no demonstrated myometrial mass. I.U.D. - The patient does not have an I.U.D. The right ovary is visualized. The right ovary measures 3.1 x 2.8 x 2.1 cm. There is a nonspecific complex appearing density in the right adnexa measuring 2 x 1.9 x 1.7 cm demonstrating shadowing likely related to bowel. There is no visualized right adnexal mass or complex lesion. There is normal arterial and normal venous vascularity. The left ovary is visualized. The left ovary measures 3.2 x 2.7 x 1.8 cm. There is no left ovarian cyst or ovarian mass. There is no visualized left adnexal mass or complex lesion. There is normal arterial and normal venous vascularity. There is no fluid in the cul-de-sac. The pre void volume of the bladder was 296.93 ml. US/Pelvic (Non ) IMPRESSION: Complex appearing density in the right adnexa of indeterminate etiology possibly artifactual related to the carlita CT or MRI however is recommended for more definitive evaluation if concern for right pelvic mass l Electronically Signed: Sundar Reyes MD at 17:23 EST ,
== END | disposition home or self-care (01) ==
LOC: US 16:17
PROVIDERS: PCP Family Medicine; Referring Provider Family Medicine; Visit Provider Family Medicine
DX: R10.2 Pelvic and perineal pain (principal)
CPT/HCPCS: 76856

== ENCOUNTER → 2023-01-24 | Outpatient (CLI) | payer OTHER, SELFPAY ==
--- NOTE | 2023-01-24 07:56 | CT_ITS ---
INDICATION: Sinusitis EXAMINATION: CT SINUSES - CT Sinuses W/O Contrast Injection TECHNIQUE: Helically acquired images were obtained of the paranasal sinuses. A radiation dose optimization technique was used for this scan. IV Contrast dosage and agent: RADIATION DOSAGE (If Supplied By Facility): CTDIvol = ( 33.06 ) mGy, DLP = ( 763.60 ) mGycm COMPARISON: FINDINGS: FRONTAL SINUSES AND RECESSES: Clear. ETHMOID AIR CELLS: Clear. MAXILLARY SINUSES: Clear. OSTIOMEATAL COMPLEXES: Clear and normally formed. SPHENOID SINUSES: Clear. SPHENOETHMOIDAL RECESSES: Clear. ANCILLARY FINDINGS: NASAL TURBINATES: Unremarkable. NASAL SEPTUM: Midline. ORBITS: Unremarkable. VISUALIZED DENTITION: No periodontal osseous erosion. ANTERIOR CRANIAL FOSSA: Unremarkable. CT/Sinus/Facial Bone IMPRESSION: Negative CT of the sinuses. Electronically Signed: Diego Kilpatrick DO at 22:50 EDT Reading Location ID and State: [facility] / [place] Tel [phone], Service support ,
== END | disposition home or self-care (01) ==
LOC: CT 07:55
PROVIDERS: PCP Family Medicine; Referring Provider Otolaryngology; Visit Provider Otolaryngology
DX: J32.0 Chronic maxillary sinusitis (principal)
CPT/HCPCS: 70486

== ENCOUNTER → 2023-02-18 | Outpatient (CLI) | payer OTHER, SELFPAY | END | disposition home or self-care (01) | LOC: LABSPEC 13:40 | PROVIDERS: PCP Family Medicine; Visit Provider Family Medicine | DX: R35.0 Frequency of micturition (principal); N94.9 Unspecified condition associated with female genital organs and menstrual cycle | CPT/HCPCS: 87086; 87491; 87591 ==

== ENCOUNTER → 2023-04-16 | Outpatient (CLI) | payer OTHER, SELFPAY ==
[2023-04-16 17:37] LABS: Absolute Lymphocyte Count 2.69 X10^3/uL (0.83-4.51); Absolute Neutrophil Count 5.3 X10^3/uL (2.0-7.7); Basophil# 0.06 X10^3/uL; Basophil% 0.7 % (0-1); Eosinophil# 0.04 X10^3/uL; Eosinophils% 0.5 % (0-5); Hemoglobin 12.9 g/dL (12.0-15.0); Lymphocyte # 2.69 X10^3/ul (0.83-4.51); Lymphocyte % 30.5 % (19-41); Mean Corp Hgb Conc 32.3 g/dL (32-36); Mean Corpuscular Hgb 30.3 pg (27.0-32.0); Mean Corpuscular Volume 93.9 fL (81-99); Mean Platelet Vol. 9.6 fl (6.2-12.0); Monocyte# 0.75 X10^3/uL; Monocyte% 8.5 % (0-10); NRBC Flagged by Analyzer 0 % (0-5); Neutrophil # 5.26 X10^3/uL (2.7-7.7); Neutrophil % 59.6 % (47-70); Platelet Count 324 K/mm3 (150-450); RBC Distribution Width CV 12.4 % (11.6-14.6); RBC Distribution Width SD 43.2 fl (35.1-43.9); Red Blood Count 4.26 M/mm3 (4.2-5.4); White Blood Count 8.8 K/mm3 (4.4-11.0)
[2023-04-16 18:00] LABS: ALB/GLOB Ratio 1.2 RATIO (0.9-2.4); AST(SGOT) 28 U/L (15-37); Alanine Aminotransfer ALT/SGPT 41 U/L (13-56); Albumin, Serum 4.1 g/dL (3.2-5.0); Alkaline Phosphatase 46 U/L (45-117); Anion Gap 4 (5-15); BUN 14 mg/dL (7-18); BUN/Creat Ratio 16.5 RATIO (10-20); Chloride 108 mmol/L (98-107); Creatinine, Serum 0.85 mg/dL (0.55-1.02); EST Glomerular Filtration Rate 85 mL/min (>60); Est Glom Filt Rate - Afr Amer 103 mL/min (>60); Globulin 3.4 g/dL (2.2-4.2); Glucose 103 mg/dL (74-106); Potassium 3.8 mmol/L (3.5-5.1); Protein, Total 7.5 g/dL (6.4-8.2); Sodium Level 140 mmol/L (136-145)
== END | disposition home or self-care (01) ==
LOC: MFPLAB 15:33
PROVIDERS: PCP Family Medicine; Visit Provider Nurse Practitioner Family
DX: R10.2 Pelvic and perineal pain (principal)
CPT/HCPCS: 36415; 80053; 85025

== ENCOUNTER → 2023-04-22 | Outpatient (CLI) | payer OTHER, SELFPAY ==
--- NOTE | 2023-04-22 12:44 | CT_ITS ---
STUDY: CT ABDOMEN AND PELVIS WITH AND WITHOUT CONTRAST REASON FOR EXAM: Female, 28 years old. Abdominal pain. Hematuria. RADIATION DOSAGE (If Supplied By Facility): CTDIvol = ( 8.85 ) mGy, DLP = ( 1225.40 ) mGycm TECHNIQUE: Transaxial images were obtained from the dome of the diaphragm to the symphysis pubis without oral contrast. IV 100mL Isovue-300 was administered. Sagittal and coronal images were reconstructed. Individualized dose optimization techniques were used for this CT. COMPARISON: None. FINDINGS: The visualized lung bases are unremarkable. The visualized portions of the heart are within normal limits. Findings suggestive of a 1.5 cm x 1.3 cm hemangioma in the inferior aspect of the right lobe of the liver. Normal gallbladder and extrahepatic biliary system. Normal spleen. Normal pancreas. Normal bilateral adrenal glands. Normal right kidney. Normal left kidney. Normal visualized stomach. Normal small intestine. Normal colon. The appendix is visualized and appears normal. Normal abdominal aorta. Normal inferior vena cava. Normal retroperitoneum. Normal urinary bladder. There is a 4.6 cm x 4.9 cm dermoid in the right ovary containing fat as well as focal calcification. Normal abdominal wall. Normal osseous structures. CT/CT Abd/Pelvis W/WO Contrast IMPRESSION: 4.6 cm x 4.9 cm dermoid in the right ovary containing fat as well as focal calcification. Electronically Signed: Twin Riggs MD at 14:53 EDT ,
== END | disposition home or self-care (01) ==
LOC: CT 12:43
PROVIDERS: PCP Family Medicine; Referring Provider Nurse Practitioner Family; Visit Provider Nurse Practitioner Family
DX: R31.9 Hematuria, unspecified (principal)
CPT/HCPCS: 74178; Q9967

== ENCOUNTER 2023-07-28 12:02 | Day surgery (SDC) | payer OTHER, SELFPAY ==
[2023-07-15 15:00] LABS: ALB/GLOB Ratio 1.2 RATIO (0.9-2.4); AST(SGOT) 19 U/L (15-37); Alanine Aminotransfer ALT/SGPT 36 U/L (13-56); Albumin, Serum 4.2 g/dL (3.2-5.0); Alkaline Phosphatase 46 U/L (45-117); Anion Gap 3 (5-15); BUN 13 mg/dL (7-18); BUN/Creat Ratio 17.2 RATIO (10-20); Calcium,Total 9.3 mg/dL (8.5-10.1); Chloride 105 mmol/L (98-107); Creatinine, Serum 0.75 mg/dL (0.55-1.02); EST Glomerular Filtration Rate 98 mL/min (>60); Est Glom Filt Rate - Afr Amer 118 mL/min (>60); Globulin 3.6 g/dL (2.2-4.2); Glucose 104 mg/dL (74-106); Potassium 3.7 mmol/L (3.5-5.1); Protein, Total 7.8 g/dL (6.4-8.2); Sodium Level 138 mmol/L (136-145)
--- NOTE | 2023-07-28 | OV_PTH ---
PATIENT: AHSAN CODY [place] [facility][id number] AGE/SX: 28/F ROOM: RE07/28/[address]: Dr. Yulia Mccartney DO : 1995 BED: DIS: 07/28/2023 SPEC #: [id number] RECD: 07/28/23 16:23 STATUS: SHAKIRA MALCOLM #: [id number] MICKY: 07/28/23 00:[address]: Yulia Mccartney DEPT: SURGICAL PATHOLOGY RECD BY: Twan Catalan ENTERED: 07/29/23 07:34 SP TYPE: OVARY OTHR DR: Dr. Sanjiv Hernandez MD Tissues: Right ovary Procedures: Decalcification bone/plaque Surgery Specimen Level V HEADER OPERATION: Laparoscopic oophorectomy PRE-OP DIAGNOSIS: Dermoid cyst of right ovary TISSUE SUBMITTED: Right ovary MICROSCOPIC DIAGNOSIS Right ovary, oophorectomy: Mature cystic teratoma (dermoid cyst). Physiologic follicular cyst. SJ:jordan 08/03/2023 MICROSCOPIC DESCRIPTION Slides are reviewed. GROSS DESCRIPTION Received in fixative is one container labeled with the patient's name and designated right ovary. The specimen consists of multiple irregular fragments of pink-simpson soft tissue ranging in size from 2.0 to 6.0 cm. The largest fragment measures 6.5 x 5.2 x 2.0 cm. The external surface is smooth and glistening. No papillary projections or excrescences are identified. The external surface is inked and the specimen is serially sectioned to reveal hair and applesauce-like material. The cyst wall ranges from 0.1 to 0.3 cm in greatest dimension. Also present is a firm, bony/calcified nodule measuring 1.5 cm in greatest dimension. This fragment is adherent to the inner wall. Machine Long Goods Helper sections are submitted in four cassettes after decalcification. / AM:jordan 07/29/2023 TC:1 CPT: 50468, 19448
[2023-07-28 12:35] VITALS: BP 117/89; PULSE 80; RESP 16; TEMP 36.7; O2SAT 99; BMI 31.4
[2023-07-28 12:38] LABS: Internal QC Validated? YES +Cl - CLEAR BKGD; Pregnancy, Urine Negative Negative; Record Kit Lot#,Urine Preg HCG0000667200
[2023-07-28] MEDS: Lactated Ringers 1,000 ML 15 ML IV (12:49)
--- NOTE | 2023-07-28 14:09 | PCM.HP.BLA ---
History and Physical Date of Admission: 07/28/23 Intake Vital Signs 06/03/2311:33 06/19/2312:55 06/23/2306:59 07/15/2313:43 07/15/2313:45 Height 5 ft 5 in 5 ft 5 in 5 ft 5 in 5 ft 5 in 5 ft 5 in Weight: 183 lb 8 oz BMI 30.5 BP 129/87 H Intake Visit Reasons: lap. right oophorectomy Operations Trainer Required: No Is patient in pain?: No Allergies topiramate [From Topamax] Allergy (Intermediate, Verified 07/22/23 16:33) Other Medications rimegepant 75 mg disintegrating tablet (Nurtec ODT) 75 tablet PO PRN PRN migraines 05/16/21 [History Confirmed 07/22/23] omeprazole 40 mg capsule,delayed release 40 mg PO DAILY #30 caps 05/30/21 [Rx Confirmed 07/22/23] indomethacin 25 mg capsule 50 mg PO DAILY 01/21/23 [History Confirmed 07/22/23] ondansetron HCl 4 mg tablet 4 mg PO Q8H PRN nausea and vomiting #30 tabs 06/23/23 [Rx Confirmed 07/22/23] Post menopausal: No Patient : No : No PFSH Medical History Abdominal pain Adjustment disorder with anxiety Alcohol use Anxiety Back pain History of steroid therapy History of ulceration Injury of head and neck Migraine Non-smoker Shortness of breath on exertion Somatic symptom disorder, mild Vertigo Wears contact lenses Wears glasses Surgical History History of esophagogastroduodenoscopy (EGD) S/P wisdom tooth extraction Family History Grandmother Heart disease Social History Smoking Status: Never smoker alcohol intake: current details: occasionally substance use type: does not use caffeine: Yes what type of physical activity do you participate in: bicycling, aerobics and weight training frequency: 3-4 times per week seatbelt use: always do you feel safe at home: Yes additional social history: - Joel JC lap. right oophorectomy Details: AHSAN CODY is a 28 year old who presents for or RLQ pain. CT and us showed a 4.6 x 4.9 cm dermoid appearing ovarian cyst. She has pain on most days that gets worse with activity and intercourse. She is interested in surgical intervention. History 0 Elective abortions Hx Para Spontaneous abortions Hx # Term Pregnancies Ectopic pregnancies Hx # Pregnancies Multiple births # of living children ROS Const ROS Unobtainable: All systems reviewed & are unremarkable except as noted in H Resp Resp: Reports system reviewed and no additional complaints, except as documented; Denies cough GI GI: Reports as per HPI Psych Psych: Reports system reviewed and no additional complaints, except as documented Exam Const General: cooperative, healthy appearing, comfortable and no acute distress Resp Effort & Inspection: normal respiratory effort Skin General: no rashes or lesions noted Psych Appearance: grossly normal Speech and Movement: speech and movement normal Coding Level of Care Code Off vis,est,level 3 Diagnoses Dermoid cyst of right ovary D27.0 Assessment and Plan Assessment and Plan (1) Dermoid cyst of right ovary: Status: Acute Plan: After discussing the patient's diagnosis and treatment plan options, patient wishes to proceed with surgical management. The plan is for a laparoscopic right oophorectomy to remove the ovary and dermoid cyst. I have discussed with the patient the risks, benefits, and alternatives of the procedure which include but are not limited to risks of anesthesia, bleeding, infection, possible damage to bowel, bladder, or surrounding vasculature which could lead to additional surgery to evaluate any complications. Patient agrees to procedure and wishes to proceed. ACOG/uptodate references given for additional information regarding procedure.
--- NOTE | 2023-07-28 14:10 | DCINST_ITS ---
Discharge Instructions Diet Discharge Diet: No restrictions Activity Discharge Activity: Return to Normal Activity, May Not Drive (for two weeks or while taking narcotic pain medications.), May Shower and May Take a Tub Bath (in 7 days) May resume sexual activity in: 1 week Weight Bearing Status: Full weight bearing Dressing / Incision Call your doctor if you observe: Using more than 1 pad per hour, Shortness of breath, Chest pain and Uncontrolled pain Suture Line Care: Avoid Pulling/Pushing and Avoid Pinching/Bending Remove Dressing in: 1 week (if present) Cleanse incision/area with: Soap & Water and Keep Dressing Clean & Dry Follow Up Care Please Follow Up With: Yulia Mccartney DO When: Call to make an appointment with your doctor for a follow up incision check in 1-2 weeks. Test Results: Test results from this visit will be discussed in further detail at your follow- up appointment, if applicable. Discharge Plan Admission Primary Reason for Your Visit: laparoscopic removal of ovary Attending Provider: Yulia Mccartney Primary Care Provider: Sanjiv Hernandez Discharge Orders/Prescriptions Prescriptions: New oxycodone 5 mg tablet 5 mg PO Q6H PRN (Reason: pain) 3 Days Qty: 7 0RF Nurtec ODT 75 mg tablet,disintegrating 75 mg PO QODAY PRN (Reason: migraine headache) Qty: 16 0RF Continued Nurtec ODT 75 mg tablet,disintegrating 75 tablet PO PRN PRN (Reason: migraines) indomethacin 25 mg capsule 50 mg PO DAILY ondansetron HCl 4 mg tablet 4 mg PO Q8H PRN (Reason: nausea and vomiting) Qty: 30 0RF omeprazole 40 mg capsule,delayed release(DR/EC) 40 mg PO DAILY Qty: 30 0RF Referrals / Follow Up: Sanjiv Hernandez MD [Primary Care Provider] - Disposition Disposition (needs filled in before D/C Order can be placed): Home, Self Care
[2023-07-28] MEDS: Bupivacaine 0.25% 30 ML Vial (15:28)
--- NOTE | 2023-07-28 15:40 | PCM.OPRPT ---
Problems Associated Problem List Diagnoses (1) Dermoid cyst of right ovary: Report of Operation Date of Procedure: 07/28/23 Pre-Operative Diagnosis: Right dermoid ovarian cyst, pelvic pain Post-Operative Diagnosis: Right dermoid ovarian cyst, pelvic pain Surgery/Procedure Performed:: laparoscopic right oophorectomy Surgeon: Yulia Mccartney drafting detailer: Ene Davis Type of Anesthesia: General Anesthesiologist: Antoine Mcmahan Specimen's removed: right ovary Drains: none Estimated Blood Loss (mL): 5 cc Description of Procedure: Patient was taken in the operating room and was placed under general anesthesia was prepped and draped in normal sterile fashion in the dorsal lithotomy position. Bladder was drained of clear urine and SCDs were on preoperatively. A single toothed tenaculum was placed on the anterior lip the cervix and a sponge stick was inserted in the posterior aspect of the uterus to elevate the uterus. Attention was then paid to the abdominal portion of the procedure and the umbilicus was elevated with towel clamps and injected with Marcaine and after a 5 mm incision was made and a 5 mm laparoscope was inserted into the abdomen under direct visualization. The Abdomen was insufflated with CO2 gas and the patient was placed in Trendelenburg position. A left lower quadrant 5 mm port and a 5 mm port suprapubically were placed under direct visualization. A suprapubic mini grasper was inserted next. Uterus was well visualized and bilateral fallopian tubes identified as well as ovaries identified. The right ovary was approximately 3-4 times the size of the left ovary. Using the minigrasper, the right fallopian tube was elevated slightly to keep out of harms way. The right IP ligament was cauterized and cut using the LigaSure device. The right ovarian ligament was also cauterized and cut and the ovary was amputated completely. An EndoCatch bag was inserted into the abdomen and the ovary was placed in the bag then brought to the level of the abdominal incision. The ovary was punctured within the bag using an 11 blade and clear, greasy fluid epelled out of the ovary and spilled out of the abdomen. A suction assistant media planner was used to remove the remaining fluid, which made the ovary small enough to fit through the now stretched incision site. The facia was then closed with a 1-0 vicryl using the thaddeus-mclcoud suture closure system. The patient tolerated the procedure well. Sponge, lap and needle counts were correct x 2. Complications none Admit VTE Documentation VTE Present on Admission: No VTE Mechan Device Prophylaxis: SCD's VTE Pharm Prophylaxis ordered?: No Multi Select Codes Urinary/Genital Urinary/Genital CPT Codes: 68644 Laproscopic BS/O
[2023-07-28 15:45] VITALS: BP 117/89; BP 135/75; PULSE 89; RESP 16; TEMP 36.1; O2SAT 99
[2023-07-28] MEDS: Ketorolac 30 MG/ML Syringe IV (15:48)
[2023-07-28 16:00] VITALS: BP 117/89; BP 121/77; PULSE 82; RESP 16; O2SAT 100
[2023-07-28 16:15] VITALS: BP 117/89; BP 122/81; PULSE 79; RESP 16; O2SAT 100
[2023-07-28 16:30] VITALS: BP 117/89; BP 120/79; PULSE 85; RESP 16; TEMP 36.9; O2SAT 98
[2023-07-28 17:25] VITALS: BP 117/89
== END 2023-07-28 17:30 | disposition home or self-care (01) ==
LOC: SDC 12:07 → AC 12:11
PROVIDERS: PCP Family Medicine; Referring Provider Obstetrics & Gynecology; Visit Provider Obstetrics & Gynecology
PROC: (CPT 58661; principal; 2023-07-28 13:30)
DX: D27.0 Benign neoplasm of right ovary (principal)
CPT/HCPCS: 58661; 00840; 36415; 80053; 81025; 86850; 86900; 86901; 88305; 88307; 88311; J7120; J2405